=== PATIENT | female | born 1960 | race Caucasian/White ===

== ENCOUNTER → 2018-11-24 | Outpatient (REF) | payer OTHER ==
[2018-11-26 14:43] LABS: HPV HYBRID CAPTURE II Negative (Negative)
== END ==
LOC: M SFHCWAGY 14:54
PROVIDERS: ATTEND Nurse Practitioner Women's Health
DX: N95.0 Postmenopausal bleeding (principal); Z12.4 Encounter for screening for malignant neoplasm of cervix; Z11.51 Encounter for screening for human papillomavirus (HPV)
CPT/HCPCS: 87624; G0123

== ENCOUNTER → 2018-11-28 | Outpatient (CLI) | payer OTHER ==
--- NOTE | 2018-11-29 07:06 | REP ---
Clinical: Postmenopausal bleeding . Technique: Transabdominal pelvic ultrasound followed by transvaginal examination for better evaluation of the endometrium and adnexa. Findings: Bladder is unremarkable and measures 6.0 x 8.2 x 6.4 cm . Heterogeneous anteverted uterus measures 11.3 x 6.2 x 8.3 cm with 1.7 x 1.3 x 1.6 cm anterior subserosal fibroid. Endometrial complex is thickened to 20 mm and appears heterogeneous with a discrete 2.7 x 1.4 x 2.6 cm isoechoic structure suggesting polyp/mass. Small Nabothian cysts measure up to 11 mm. Left ovary not visualized. Right ovary appears normal and measures 2.8 x 1.1 x 1.8 cm. No ascites or pelvic mass lesion identified. Impression: 1. Heterogeneous thickened endometrium with suspected 2.7 cm polyp/mass. 2. 1.7 cm anterior subserosal fibroid. 3. Normal right ovary. Left ovary not visualized.
== END ==
LOC: M WHC 07:59
PROVIDERS: ATTEND Nurse Practitioner Women's Health
DX: N95.0 Postmenopausal bleeding (principal); D25.2 Subserosal leiomyoma of uterus; R93.89 Abnormal findings on diagnostic imaging of other specified body structures

== ENCOUNTER → 2019-03-09 | Outpatient (CLI) | payer OTHER ==
--- NOTE | 2019-03-09 22:00 | ECGEPIP ---
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 Electronically Signed on 03-09-2019 22:00:26 EDT by Salo Cooper
== END ==
LOC: M EKG 12:46
PROVIDERS: ATTEND Anesthesiology
DX: Z01.818 Encounter for other preprocedural examination (principal); Z78.0 Asymptomatic menopausal state

== ENCOUNTER 2019-03-16 09:26 | Day surgery (SDC) | payer OTHER ==
[~2019-03-16] VITALS: Ht 149.9 cm; Wt 76.2 kg
[~2019-03-16 09:26] MED LIST: LR 1,000 ML IV ONE
[2019-03-16] MEDS ORDERED: VASOPRESSIN INJ 20 UNITS/ML VIAL As Ordered ONE (09:57)
[2019-03-16] MEDS ORDERED: METHYLENE BLUE 0.5% (5MG/ML) 10 ML AMP (PROVAYBLUE)(Q9968 PER 1MG) As Ordered ONE (10:01)
[2019-03-16] MEDS ORDERED: fentaNYL 100 MCG/2 ML INJECTION (J3010) As Ordered ONE (10:05)
[2019-03-16] MEDS ORDERED: MIDAZOLAM INJ 2 MG/2 ML VIAL (J2250) As Ordered ONE (10:05)
--- NOTE | 2019-03-16 12:12 | RO ---
DATE OF PROCEDURE: 03/16/2019 PREOPERATIVE DIAGNOSES/INDICATION FOR SURGERY: Bleeding, abnormal sono, stress urinary incontinence with urethral hypermobility. POSTOPERATIVE DIAGNOSES: Bleeding, abnormal sono, stress urinary incontinence with urethral hypermobility. PROCEDURE: Dilatation and curettage hysteroscopy, MyoSure polypectomy using the XL MyoSure, and mini midurethral sling placement with cystourethroscopy. SURGEON: Brielle Pavon MD FLOORS BUFFER: None. ANESTHESIA: Laryngeal mask airway (LMA). SPECIMENS: Endometrium. BRIEF DESCRIPTION OF PROCEDURE AND FINDINGS: Ashtyn was brought to the operating room where LMA anesthesia was induced and she was prepped, draped and positioned in the usual sterile fashion. The Pooja retractor was placed, a single tooth tenacula placed, the bladder emptied and then the cervix carefully dilated in order to allow introduction of the hysteroscope. With visualization of the endometrium, we could definitely seen overgrowth and multiple polyps, and as is documented on the operative photos. We then used the XL MyoSure to resect all of these. There did not appear to be any kind of frond like surface, but there is definitely more overgrowth than we would expect to see in a 59-year-old, that said, did not appear to have any ulceration, hypervascularity, or frond like concerning growth, just polyps that had a fairly typical smooth appearance. There does not appear to be fibroids, just polypoids, overgrowth and polyps both. We were able to completely resect those and send for pathology. Curettage was also carried out and then the uterine portion of the case was ended. We turned out attention to the anterior vaginal wall. A small amount of diluted vasopressin was injected for hydro dilation and hemostasis and using an Allis clamp to elevate the anterior vaginal wall, we made approximately a centimeter and a half vertical midline incision about a centimeter cephalad from the urethral meatus and used the Strully scissors to dissect out laterally for the tracts for the trocars for the Solyx mid urethral sling and this mini mid urethral sling was placed in the usual fashion, first the right side then the left, and then cystourethroscopy was undertaken. This confirmed absence of bladder injury and normal jets of urine from the ureters. The wound was then closed and the procedure ended. ESTIMATED BLOOD LOSS FOR PROCEDURE: About 10 mL. FLUID REPLACEMENT: Crystalloid. COMPLICATIONS: None. CONDITION AND DISPOSITION: Ashtyn tolerated the procedure well and was recovering in the recovery room in good condition.
[2019-03-16] MEDS ORDERED: PERCOCET 5MG/325MG TAB PO PRN (12:15)
[2019-03-16] MEDS ORDERED: ONDANSETRON 4MG/2ML VIAL (J2405) IV PRN (12:15)
[2019-03-16] MEDS ORDERED: NORCO, ANEXSIA 5/325MG TABLET (HYDROcodone/ACETAMINOPHEN) PO PRN (12:15)
[2019-03-16] MEDS ORDERED: fentaNYL 100 MCG/2 ML INJECTION (J3010) IV PRN (12:15)
[2019-03-16] MEDS ORDERED: IBUPROFEN 600 MG TAB PO PRN (12:15)
[2019-03-16] MEDS ORDERED: LR 1,000 ML IV SCH ×2 (12:15)
[2019-03-16] MEDS ORDERED: METOCLOPRAMIDE INJ 10MG/2ML VIAL (J2765) IV PRN (12:15)
[2019-03-16 12:45] VITALS: BP 182/90
== END 2019-03-16 13:10 | disposition home or self-care (01) ==
LOC: M SDC 09:26
PROVIDERS: ATTEND Obstetrics & Gynecology
DX: N95.0 Postmenopausal bleeding (principal); N85.01 Benign endometrial hyperplasia; N39.3 Stress incontinence (female) (male); N36.41 Hypermobility of urethra; Z91.013 Allergy to seafood
CPT/HCPCS: 57288; 58558; 88305; C1771; J0690; J2250; J3010

== ENCOUNTER → 2020-05-27 | Outpatient (CLI) | payer OTHER ==
--- NOTE | 2020-06-12 08:45 | REPMRS ---
Patient History The patient states she has not had a clinical breast exam in over a year. Patient is postmenopausal. Family history of breast cancer in maternal aunt, pancreatic cancer at age 47 in father. Digital Woman Screen Mammo: May 27, 2020 - Exam #: [id number] Bilateral CC and MLO view(s) were taken. Technologist: Alisson Davis, Technologist Prior study comparison: May 12, 2017, bilateral digital mammo screening bilat, performed at [facility]. FINDINGS: There are scattered fibroglandular densities. The Volpara volumetric breast density category is:B. There is a 6 mm well circumscribed neodensity in the left breast. There is also an 8 mm well circumscribed neodensity in the right breast. These findings warrent further evaluation. There has been no other change in the appearance of the mammogram from the prior studies. There is a mild amount of scattered fibroglandular density which is fairly symmetric. There is no interval development of dominant mass, architectural distortion, or grouped microcalcification suggestive of malignancy. 3-D tomosynthesis shows no additional findings. Assessment: BI-RADS/ACR category 0 mammogram, Incomplete: Need additional imaging evaluation and/or prior mammograms for comparison. Recommendation Ultrasound and special view mammogram of both breasts. This patient's Lifetime Breast Cancer Risk is estimated at 14.7 %. This mammogram was interpreted with the aid of an FDA-approved computer-aided dectection system. Electronically Signed By: Guero Carrera MD 06/12/20 0844
== END ==
LOC: M WHC 17:28
PROVIDERS: ATTEND Internal Medicine
DX: R92.2 Inconclusive mammogram (principal); Z78.0 Asymptomatic menopausal state; Z80.0 Family history of malignant neoplasm of digestive organs

== ENCOUNTER → 2020-07-09 | Outpatient (CLI) | payer OTHER ==
--- NOTE | 2020-07-17 14:45 | REP ---
BILATERAL DIGITAL DIAGNOSTIC MAMMOGRAPHY WITH CAD AND FOCUSED BILATERAL BREAST SONOGRAPHY HISTORY: Screening mammography from 05/27/2020 showed a nodular neodensity in each breast, one on each side. Diagnostic imaging was recommended. Comparison is also made with prior mammography from 05/12/2017. MAMMOGRAPHIC FINDINGS: Magnified focal spot compression craniocaudal, mediolateral oblique, and mediolateral views of each breast were obtained. A well-circumscribed nodular neodensity is confirmed in each breast. Scattered fibroglandular elements are seen. No spiculation or microcalcification is observed. No architectural distortion is seen. The nodular opacity in the right breast is at approximately 12 o'clock position 6 mm in greatest diameter. The nodular neodensity in the left breast is inferolateral approximately 5 o'clock position mammographically. It measures 6 mm in greatest diameter as well. No other mammographically suspicious finding. SONOGRAPHIC FINDINGS: The right breast is examined at approximately 12 o'clock. Two cm from the nipple at 12 o'clock, there is a simple cyst measuring 6 x 6 x 3 mm. This is felt to account for the mammographic opacity. No suspicious finding is seen in the right breast sonographically. In the left breast inferiorly and laterally at the 5 o'clock retroareolar region, there is a 0.5 x 0.3 x 0.5 cm cyst. This has a benign appearance as well with a partial thin septation. It is felt to account for the mammographic opacity. No suspicious sonographic findings in the right breast. IMPRESSION: BI-RADS Category 2 benign findings. There is a benign cyst in each breast accounting for the neodensity on each side mammographically. Repeat screening bilateral mammography recommended in one year. This mammogram was interpreted with the aid of an FDA approved computer-aided detection system. Patient letter: Cecelia. DEMETRICE
== END ==
LOC: M WHC 08:02
PROVIDERS: ATTEND Internal Medicine
DX: R92.2 Inconclusive mammogram (principal); N60.01 Solitary cyst of right breast; N60.02 Solitary cyst of left breast

== ENCOUNTER → 2021-06-27 | Outpatient (CLI) | payer OTHER ==
--- NOTE | 2021-06-28 16:22 | REP ---
INDICATION: PAIN COMPARISON: None. TECHNIQUE: AP, lateral, bilateral oblique views left foot. FINDINGS: Moderate hallux valgus deformity is appreciated along with periarticular sclerosis and joint space narrowing at the 1st metatarsophalangeal joint. No evidence for acute fracture or dislocation. Lateral view demonstrates moderate calcaneal heel spur. Remainder of the examination is essentially age-appropriate. IMPRESSION: Degenerative changes as noted above.. No acute fracture or dislocation. <Electronically signed by Dony Phillip > 06/28/21 [id number]
== END ==
LOC: M WUC 15:56
PROVIDERS: ATTEND Internal Medicine
DX: M19.072 Primary osteoarthritis, left ankle and foot (principal)

== ENCOUNTER → 2021-08-06 | Outpatient (CLI) | payer OTHER ==
--- NOTE | 2021-08-06 16:35 | REP ---
INDICATION: BREAST SCREENING. COMPARISON: Multiple prior screening examinations, the most recent, 05/27/2020 TECHNIQUE: Digital screening (2D) mammography was performed bilaterally in the CC and MLO projections. Additionally, breast tomosynthesis (3D mammography) was performed bilaterally in the CC and MLO projections. [facility], there are scattered areas of fibroglandular density.. The masses seen in both breasts on the prior mammogram, and shown to be cysts at subsequent ultrasound, are again noted. The mass in the right breast is undergone interval decrease in size consistent with a shrinking cyst. There are no new nodules identified. The breasts are otherwise stable. IMPRESSION: BIRADS/ACR : Category 2: Benign finding. This patient's Tyrer-Cuzick lifetime breast cancer risk assessment score is 14.3%. This mammogram was interpreted with the aid of an FDA-approved computer-aided detection system. The patient states she has not had a clinical breast exam in more than 1 year. The patient letter being requested is M2. RECOMMENDATION: Repeat screening mammography recommended 1 year (for women over 40). <Electronically signed by Leeroy Murillo > 08/06/21 [id number]
== END ==
LOC: M WHC 07:09
PROVIDERS: ATTEND Internal Medicine
DX: Z12.31 Encounter for screening mammogram for malignant neoplasm of breast (principal)

== ENCOUNTER 2024-08-17 06:45 | Day surgery (SDC) | payer OTHER ==
[~2024-08-17] VITALS: Ht 149.9 cm; Wt 82.8 kg
[2024-08-17] MEDS ORDERED: propofoL 200 MG/20 ML VIAL As Ordered ONE (07:24)
[2024-08-17 07:52] VITALS: TEMP 96.3
[2024-08-17 08:13] VITALS: BP 165/87; O2SAT 98
== END 2024-08-17 08:13 | disposition home or self-care (01) ==
LOC: M OPP 06:45
PROVIDERS: ATTEND Internal Medicine Gastroenterology
DX: Z12.11 Encounter for screening for malignant neoplasm of colon (principal); K57.30 Diverticulosis of large intestine without perforation or abscess without bleeding; K64.8 Other hemorrhoids; K21.9 Gastro-esophageal reflux disease without esophagitis; Z80.0 Family history of malignant neoplasm of digestive organs; E78.00 Pure hypercholesterolemia, unspecified; Z91.013 Allergy to seafood

== ENCOUNTER → 2025-04-27 | Outpatient (CLI) | payer OTHER | LOC: M WHC 10:00 | PROVIDERS: ATTEND Internal Medicine | DX: Z12.31 Encounter for screening mammogram for malignant neoplasm of breast (principal); R92.323 Mammographic fibroglandular density, bilateral breasts ==